=== PATIENT | male | born 1945 | race Caucasian/White ===

== ENCOUNTER 2018-02-18 17:53 | Emergency (ER) | payer MEDICARE, OTHER ==
[2018-02-18 18:21] VITALS: BP 151/76; PULSE 71; TEMP 98.6; O2SAT 98
[2018-02-18 20:50] VITALS: RESP 16
[2018-02-18 22:01] LABS: URINE BILIRUBIN NEGATIVE (NEGATIVE); URINE CLARITY Clear (Clear); URINE COLOR Colorless (YELLOW); URINE GLUCOSE (UA) NORMAL (Normal); URINE LEUKOCYTE ESTERASE NEG Leu/uL (Negative); URINE PROTEIN NEGATIVE (NEGATIVE); URINE UROBILINOGEN NORMAL mg/dL (0.2-1.0)
[2018-02-18 22:06] LABS: URINE BLOOD TRACE (NEGATIVE)
== END 2018-02-18 20:00 | disposition left against medical advice (07) ==
LOC: C.ER 17:53
DX: Z02.89 Encounter for other administrative examinations (principal); M54.9 Dorsalgia, unspecified
CPT/HCPCS: 81001; LWBS0